=== PATIENT | male | born 1960 | race Caucasian/White ===

== ENCOUNTER 2025-08-12 02:47 | Emergency (ER) | payer MEDICARE, OTHER ==
[2025-08-12 03:27] LABS: BASOPHILS ABSOLUTE AUTO 0.04 K/uL (0.00-0.10); BASOPHILS PERCENT AUTO 0.4 % (0.1-1.3); EOSINOPHILS ABSOLUTE AUTO 0.03 K/uL (0.00-0.40); EOSINOPHILS PERCENT AUTO 0.3 % (0.0-5.4); IMMATURE GRAN ABSOLUTE AUTO 0.03 K/uL (0.00-0.23); IMMATURE GRAN PERCENT AUTO 0.3 % (0.0-0.7); LYMPHOCYTES ABSOLUTE AUTO 0.71 K/uL (0.8-3.3); LYMPHOCYTES PERCENT AUTO 6.2 % (11.4-47.7); MONOCYTES ABSOLUTE AUTO 0.44 K/uL (0.20-0.90); MONOCYTES PERCENT AUTO 3.9 % (3.3-12.6); NEUTROPHILS ABSOLUTE AUTO 10.13 K/uL (1.0-7.6); NEUTROPHILS PERCENT AUTO 88.9 % (40.0-78.1); PLATELET COUNT,PLT 238 K/uL (130-375); RED BLOOD CELL COUNT 4.05 M/uL (4.14-5.76); WHITE BLOOD CELL COUNT,WBC 11.4 K/uL (3.2-11.0)
[2025-08-12] MEDS: Triamcinolone Acetonide 0.1% Crm 15 GM Tube TOP ONE (03:44)
[2025-08-12] MEDS: Ondansetron 4 MG/2 ML SDV IVPUSH ONE (03:44)
[2025-08-12 03:47] LABS: A/G RATIO 1.2 (1.2-2.2); ALANINE AMINOTRANSFERASE,ALT 44 U/L (12-78); ASPARTATE AMNIOTRANSFERASE,AST 34 U/L (15-37); BILIRUBIN TOTAL 0.9 mg/dL (0.2-1.0); BLOOD UREA NITROGEN,BUN 13 mg/dL (7-18); CARBON DIOXIDE,CO2 26 mmol/L (21-32); CHLORIDE,CL 102 mmol/L (100-108); CREATININE 1.1 mg/dL (0.8-1.3); EST CRCL DRUG DOSING (CG) 73.48 mL/min; ESTIMATED GFR 75 mL/min (>60); GLUCOSE RANDOM 147 mg/dL (74-106); POTASSIUM,K 3.4 mmol/L (3.6-5.2); PROTEIN TOTAL,TP 7.0 g/dL (6.4-8.2); SODIUM,NA 139 mmol/L (140-148)
[2025-08-12 03:53] LABS: LACTIC ACID 2.7 mmol/L (0.4-2.0)
[2025-08-12] MEDS: Sodium Chloride 0.9% 10 ML Syringe FLUSH PRN (04:11)
[2025-08-12] MEDS: Iopamidol 612 MG/ML 100 ML Bottle IV PRN (04:11)
[2025-08-12] MEDS ORDERED: Naloxone 0.4 MG/ML SDV IVPUSH PRN (06:32)
[2025-08-12 07:00] LABS: APPEARANCE,URINE CLEAR (CLEAR); GLUCOSE,URINE NEGATIVE (NEGATIVE); OCCULT BLOOD,URINE TRACE-INTACT (NEGATIVE)
[2025-08-12 07:18] LABS: SQUAMOUS EPITHELIAL CELLS,UR RARE /HPF; UROTHELIAL CELLS,URINE NOT SEEN /HPF
[2025-08-12 08:21] VITALS: BP 125/66; PULSE 84
== END 2025-08-12 08:20 | disposition home or self-care (01) ==
LOC: JP.ED 02:47
DX: K80.51 Calculus of bile duct without cholangitis or cholecystitis with obstruction (principal); Z88.8 Allergy status to other drugs, medicaments and biological substances; Z79.82 Long term (current) use of aspirin; Z90.49 Acquired absence of other specified parts of digestive tract
CPT/HCPCS: 36415; 74177; 76705; 80053; 81001; 83605; 83690; 85025; 86140; 96365; 96375; 99284; A9270; J2405; J2543; Q9967; J1171